=== PATIENT | male | born 2000 | race Caucasian/White ===

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

== ENCOUNTER 2023-02-25 15:54 | Emergency (ER) | payer BC, OTHER ==
[~2023-02-25] VITALS: Ht 170.2 cm; Wt 65.8 kg
[2023-02-25 16:10] VITALS: BP_SYST 109; PULSE 104; RESP 18; TEMP 97.1; O2SAT 96
[2023-02-25] MEDS ORDERED: NACL 0.9% 1,000 ML IV ONE (16:15)
[2023-02-25 16:33] LABS: BASOPHILS % (AUTO) 0.6 % (0.0-2.0); EOSINOPHILS % (AUTO) 0.1 % (0.0-4.0); HEMATOCRIT 44.2 % (36-54); LYMPHOCYTES % (AUTO) 25.2 % (20.5-51.5); MEAN CORPUSCULAR HEMOGLOBIN 28 pg (27-31); MEAN CORPUSCULAR HGB CONC 34 % (32-36); MEAN CORPUSCULAR VOLUME 83 fL (79.0-98.0); MONOCYTES # (AUTO) 0.5 K/uL (0.0-1.0); MONOCYTES % (AUTO) 6.2 % (1.7-9.3); NEUTROPHILS # (AUTO) 5.3 K/uL (1.8-7.7); NEUTROPHILS % (AUTO) 67.9 % (40.0-70.0); PLATELET COUNT (AUTO) 347 K/uL (130-430); RED BLOOD CELL COUNT(AUTO) 5.31 MIL/uL (4.2-6.2); RED CELL DISTRIBUTION WIDTH 13.7 % (9.0-15.0); WHITE BLOOD COUNT (AUTO) 7.8 K/uL (4.8-10.8)
[2023-02-25 16:43] LABS: ANION GAP 13 (5-15); CALCIUM 8.5 mg/dL (8.4-11.0); CARBON DIOXIDE 24 mmol/L (23-29); CHLORIDE 103 mmol/L (98-107); CREATININE 0.78 mg/dL (0.55-1.30); GFR AFRICAN AMERICAN 162 mL/min (>90); GLUCOSE 83 mg/dL (74-106); POTASSIUM 3.2 mmol/L (3.5-5.1); SODIUM SERUM 140 mmol/L (136-145); UREA NITROGEN, BLOOD 11 mg/dL (8-21)
[2023-02-25 16:48] LABS: ALANINE AMINOTRANSFERASE 50 U/L (12-78); ALBUMIN 4.3 g/dL (3.4-4.8); ASPARTATE AMINOTRANSFERASE 14 U/L (10-37); SALICYLATE 1 mg/dL (3-30); TOTAL BILIRUBIN 0.8 mg/dL (0.0-1.0); TOTAL PROTEIN, SERUM 7.8 g/dL (6.4-8.3)
[2023-02-25 16:50] LABS: GFR NON AFRICAN-AMERICAN 134 mL/min (>90)
[2023-02-25 17:05] LABS: ALCOHOL, BLOOD < 3 mg/dL (<10)
[2023-02-25 17:21] LABS: ACETAMINOPHEN < 1 ug/mL (1-30)
[2023-02-25 22:56] VITALS: BP_SYST 121; PULSE 74; RESP 12; TEMP 97.4; O2SAT 97
== END 2023-02-25 22:56 | disposition home or self-care (01) ==
LOC: SED 15:54
DX: T43.591A Poisoning by other antipsychotics and neuroleptics, accidental (unintentional), initial encounter (principal); Z79.899 Other long term (current) drug therapy; Z20.822 Contact with and (suspected) exposure to COVID-19; Y92.89 Other specified places as the place of occurrence of the external cause
CPT/HCPCS: 99285; 96360; 87426; 80053; 85025; 36415; 93005; G0482; J7030; G0480; G0481